=== PATIENT | female | born 1995 | race Caucasian/White ===

== ENCOUNTER 2018-01-17 11:31 | Emergency (ER) | payer OTHER ==
[~2018-01-17] VITALS: Ht 162.6 cm; Wt 65.8 kg
== END 2018-01-17 12:50 | disposition home or self-care (01) ==
LOC: ER 11:31
DX: R22.0 Localized swelling, mass and lump, head (principal)

== ENCOUNTER 2019-09-20 14:01 | Emergency (ER) | payer OTHER ==
[~2019-09-20] VITALS: Ht 167.6 cm; Wt 59.9 kg
[2019-09-20] MEDS ORDERED: NYSTATIN15 G2 (14:47)
== END 2019-09-20 18:17 | disposition home or self-care (01) ==
LOC: ER 14:01
DX: N76.81 Mucositis (ulcerative) of vagina and vulva (principal)